=== PATIENT | female | born 1955 | race Caucasian/White ===

== ENCOUNTER 2018-11-23 19:00 | Emergency (ER) | payer MEDICARE, OTHER ==
--- NOTE | 2018-11-23 20:28 | ER Document Report ---
ED Medical Screen (RME) - General Chief Complaint: Leg Pain Stated Complaint: LEG PAIN Time Seen by Provider: 11/23/18 20:25 Mode of Arrival: Ambulatory Information source: Patient Notes: 63-year-old white female presents to ED for complaint of pain and swelling and redness to the right thigh. She states she just had a hip replacement done on November 06. She states she had similar symptoms on the other side of the leg and the orthopedic surgeon did a Doppler on that area and it was negative. She states that was a couple days after surgery. She states this area is just started swelling and painful this afternoon. She states she had a friend look at it and when she saw her red and swollen was she came to the emergency room. She is alert oriented respirations regular and unlabored speaking in full sentences walks with even steady gait. She does have a history of high blood pressure anxiety gastric bypass hernia repair. She had a necrotic hip is why they did the hip replacement. I have ordered blood work and a venous Doppler for the right leg. I have greeted and performed a rapid initial assessment of this patient. A comprehensive ED assessment and evaluation of the patient, analysis of test results and completion of medical decision making process will be conducted by an additional ED providers. TRAVEL OUTSIDE OF THE [place] IN LAST 30 DAYS: No - Related Data Allergies/Adverse Reactions: morphine Adverse Reaction (Verified 11/23/18 19:39) Past Medical History Past Surgical History: Reports: Hx Gastric Bypass Surgery
[2018-11-23 21:55] LABS: ABSOLUTE EOSINOPHILS # (AUTO) 0.2 10^3/uL (0.0-0.6); ABSOLUTE LYMPHOCYTES (AUTO) 1.3 10^3/uL (0.5-4.7); ABSOLUTE MONOCYTES (AUTO) 0.5 10^3/uL (0.1-1.4); ABSOLUTE NEUT (AUTO) 4.3 10^3/uL (1.7-8.2); BASOPHILS % (AUTO) 0.7 % (0-2); EOSINOPHILS % (AUTO) 2.5 % (0-6); HEMATOCRIT 32.1 % (36.0-47.0); HEMOGLOBIN 10.5 g/dL (12.0-15.5); LYMPHOCYTES % (AUTO) 20.4 % (13-45); MEAN CORPUSCULAR HEMOGLOBIN 25.6 pg (27.0-33.4); MEAN CORPUSCULAR HGB CONC 32.7 g/dL (32.0-36.0); MEAN CORPUSCULAR VOLUME 78 fl (80-97); MONOCYTES % (AUTO) 8.3 % (3-13); PLATELET COUNT 340 10^3/uL (150-450); SEGMENTED NEUTROPHILS % (AUTO) 68.1 % (42-78); TOTAL CELLS COUNTED % (AUTO) 100 %; WHITE BLOOD COUNT 6.4 10^3/uL (4.0-10.5)
[2018-11-23 22:12] LABS: ALBUMIN 4.2 g/dL (3.5-5.0); ALKALINE PHOSPHATASE 169 U/L (38-126); ANION GAP 10 (5-19); ASPARTATE AMINO TRANSFERASE 27 U/L (14-36); BILIRUBIN,DIRECT 0.2 mg/dL (0.0-0.4); BILIRUBIN,TOTAL 0.4 mg/dL (0.2-1.3); BLOOD UREA NITROGEN 16 mg/dL (7-20); CALCIUM 9.3 mg/dL (8.4-10.2); CARBON DIOXIDE 28 mmol/L (22-30); CHLORIDE 96 mmol/L (98-107); GLUCOSE 86 mg/dL (75-110); POTASSIUM 4.2 mmol/L (3.6-5.0); TOTAL PROTEIN 6.9 g/dL (6.3-8.2)
--- NOTE | 2018-11-23 22:50 | ER Document Report ---
ED Extremity Problem, Lower - General Chief Complaint: Leg Pain Stated Complaint: LEG PAIN Time Seen by Provider: 11/23/18 20:25 Primary Care Provider: PHILIPP JUAN MD [Primary Care Provider] - 11/26/18 Mode of Arrival: Ambulatory TRAVEL OUTSIDE OF THE [place] IN LAST 30 DAYS: No - HPI Notes: Patient is a 63-year-old female that presents to the emergency department for chief complaint of right leg pain and swelling. Patient reports pain and swelling in her medial right leg that began today. She states it is a sharp pain that is worse with movement or palpation. She did take Ultram around 5 PM tonight which gave her some relief. She denies any associated fevers or chills. She does report hip replacement on the right side on November 06 which has been healing well for her. She denies history of DVT in the past and is not on any anticoagulation. Past Medical History: Hypertension, anxiety Past Surgical History: Gastric bypass, right hip replacement Social History: Denies drugs alcohol and tobacco use Family History: Reviewed and noncontributory for presenting illness Allergies: Reviewed, see documented allergy list. REVIEW OF SYSTEMS: CONSTITUTIONAL : No fever No chills No diaphoresis No recent illness EENT: No vision changes No congestion No sore throat CARDIOVASCULAR: No chest pain No palpitations RESPIRATORY: No shortness of breath No cough No difficulty breathing GASTROINTESTINAL: No abdominal pain No nausea No vomiting No diarrhea GENITOURINARY: No dysuria No hematuria No difficulty urinating MUSCULOSKELETAL: No back pain leg pain No arm pain SKIN: rashes No lesions LYMPHATIC: No swollen, enlarged glands. NEUROLOGICAL: No lightheadedness No headache No weakness No paresthesias PSYCHIATRIC: No anxiety No depression PHYSICAL EXAMINATION: Vital signs reviewed, nursing noted reviewed. GENERAL: Well-appearing, well-nourished and in no acute distress. HEAD: Atraumatic, normocephalic. EYES: Eyes appear normal, extraocular movements intact, sclera anicteric, conjunctiva are normal. ENT: nares patent, oropharynx clear without exudates. Moist mucous membranes. NECK: Normal range of motion, supple without lymphadenopathy LUNGS: Breath sounds clear to auscultation bilaterally and equal. No wheezes rales or rhonchi. HEART: Regular rate and rhythm without murmurs ABDOMEN: Soft, nontender, normoactive bowel sounds. No rebound, guarding, or rigidity. No masses appreciated. EXTREMITIES: Medial right thigh tenderness with large swollen vericose veins and superficial blanchable erythema, no calf tenderness or erythema NEUROLOGICAL: No focal neurological deficits. Moves all extremities spontaneously Motor and sensory grossly intact on exam. PSYCH: Normal mood, normal affect. SKIN: Warm, Dry, normal turgor, medial right thigh blanchable erythema without Calor. Well-healing right lateral hip surgical incision without wound dehiscence or drainage . - Related Data Allergies/Adverse Reactions: morphine Adverse Reaction (Verified 11/23/18 19:39) Past Medical History - General Information source: Patient - Social History Smoking Status: Never Smoker Family History: Reviewed & Not Pertinent - Past Medical History Cardiac Medical History: Reports: Hx Hypertension Psychiatric Medical History: Reports: Hx Depression Past Surgical History: Reports: Hx Gastric Bypass Surgery Physical Exam - Vital signs Vitals: Temp Pulse Resp BP Pulse Ox 98.6 F 85 16 139/68 H 98 11/23/18 20:26 11/23/18 20:26 11/23/18 20:26 11/23/18 20:26 11/23/18 20:26 Course - Re-evaluation Re-evalutation: 11/23/18 22:48 Vitals reviewed. Nursing notes reviewed. Lab work was drawn in triage which shows no leukocytosis. Patient does have some erythema to her medial right thigh likely related to an early superficial venous thrombosis seen on ultrasound. Ultrasound showed no deep venous thromboses. I do not appreciate area of cellulitis and patient has no systemic symptoms of infection. Her hip replacement incision is healing well and she has no hip tenderness or pain with range of motion currently. Patient was given Percocet for pain control. She will begin using warm compresses over her medial thigh to help with the superfi cial venous thrombosis. She will follow with her PCP Monday morning for close outpatient reevaluation and will return for new or worsening symptoms. Laboratory 11/23/18 11/23/18 21:35 21:35 WBC 6.4 RBC 4.10 Hgb 10.5 L Hct 32.1 L MCV 78 L MCH 25.6 L MCHC 32.7 RDW 16.0 H Plt Count 340 Lymph % (Auto) 20.4 [place] % (Auto) 8.3 Eos % (Auto) 2.5 Baso % (Auto) 0.7 Absolute Neuts (auto) 4.3 Absolute Lymphs (auto) 1.3 Absolute Monos (auto) 0.5 Absolute Eos (auto) 0.2 Absolute Basos (auto) 0.0 Seg Neutrophils % 68.1 Sodium 134.2 L Potassium 4.2 Chloride 96 L Carbon Dioxide 28 Anion Gap 10 BUN 16 Creatinine 0.44 L Est GFR ( Amer) > 60 Est GFR (MDRD) Non-Af > 60 Glucose 86 Calcium 9.3 Total Bilirubin 0.4 Direct Bilirubin 0.2 Neonat Total Bilirubin Not Reportable Neonat Direct Bilirubin Not Reportable Neonat Indirect Bili Not Reportable AST 27 ALT 26 Alkaline Phosphatase 169 H Total Protein 6.9 Albumin 4.2 - Vital Signs Vital signs: Temp Pulse Resp BP Pulse Ox 98.6 F 85 16 139/68 H 98 11/23/18 20:26 11/23/18 20:26 11/23/18 20:26 11/23/18 20:26 11/23/18 20:26 - Laboratory Result Diagrams: 11/23/18 21:35 11/23/18 21:35 Laboratory results interpreted by me: 11/23/18 11/23/18 21:35 21:35 Hgb 10.5 L Hct 32.1 L MCV 78 L MCH 25.6 L RDW 16.0 H Sodium 134.2 L Chloride 96 L Creatinine 0.44 L Alkaline Phosphatase 169 H Discharge - Discharge Clinical Impression: Acute superficial venous thrombosis of right lower extremity Condition: Stable Disposition: HOME, SELF-CARE Additional Instructions: Please return to the emergency department if you have any worsening, or concern of your symptoms. Please return to the emergency department if you develop chest pain, difficulty breathing, fever, or ongoing vomiting. Please follow-up with your primary care physician in 2-3 days and any other recommended physicians. If prescribed, take all medications as directed. If you have any questions or concerns do not hesitate to return the emergency department for evaluation. Keep your right leg elevated at or above the level of your heart as often as possible to help with swelling. Avoid standing for long periods of time. Use warm compresses over the affected area for 15 to 20 minutes at a time 3-4 times daily. Referrals: PHILIPP JUAN MD [Primary Care Provider] - 11/26/18
[2018-11-23] MEDS ORDERED: OXYCODONE-ACETAMINOPHEN 5-325 MG TABLET PO ONE (23:06)
--- NOTE | 2018-11-23 23:18 | RADIOLOGY REPORT (SQ) ---
EXAM DESCRIPTION: US EXTREMITY VEINS UNILATERAL COMPLETED DATE/TME: 11/23/2018 20:12 CLINICAL HISTORY: 63 years Female swelling recent hip surgery 2 weeks COMPARISON: None. TECHNIQUE: Duplex imaging performed to evaluate the right lower extremity venous structures. Compression imaging and augmentation imaging performed. The common femoral, superficial femoral, popliteal, greater saphenous and posterior tibial veins were examined. FINDINGS: No thrombus is identified in the right lower extremity deep venous structures. There appears to be acute thrombus in the greater saphenous at the level of the knee. Small amount subcutaneous edema is noted. IMPRESSION: No evidence of DVT Superficial thrombus at the level of the knee
[2018-11-24 00:37] VITALS: BP 117/52
== END 2018-11-24 00:35 | disposition home or self-care (01) ==
LOC: ER 19:00
DX: I82.811 Embolism and thrombosis of superficial veins of right lower extremity (principal); M79.604 Pain in right leg; M79.89 Other specified soft tissue disorders; Z79.899 Other long term (current) drug therapy; I10 Essential (primary) hypertension; F41.9 Anxiety disorder, unspecified
CPT/HCPCS: 36415; 85025; 80053; 93971; A9270; 99284